=== PATIENT | female | born 1985 | race Caucasian/White ===

== ENCOUNTER 2020-09-19 16:36 | Emergency (ER) | payer MEDICAID ==
[~2020-09-19] VITALS: Ht 160 cm; Wt 63.5 kg
[2020-09-19 16:38] VITALS: BP 109/76
--- NOTE | 2020-09-19 16:46 | NUR ---
PT AMBULATED TO BED 1.
--- NOTE | 2020-09-19 16:50 | NUR ---
NADYA Gracia is evaluating patient at bedside.
[2020-09-19] MEDS ORDERED: KETOROLAC 30 MG/ML VIAL IM ONE (17:00)
--- NOTE | 2020-09-19 17:09 | NUR ---
35 y/o female coming in from home with c/c leg pain. Pt states she has been experiencing left leg pain x 4 months, and it progressively has gotten worse in the past 3 weeks. She states she has had difficulty sleeping due to pain. Pt states pain 10/10 from left buttock region that radiates down to left foot. Pt states associated lightheadness and nausea. Pt sought Teleconsult with MD last week, prescribed with gabapentin and ibuprofen, which provided no relief. Denies trauma or injury to area. Pt took Ibuprofen at 10AM today with no relief to pain. 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 Bed locked in lowest position, side rails x 1, call light in reach. PMH/Meds: Denies NKA
--- NOTE | 2020-09-19 17:27 | NUR ---
X-ray transported pt via wheelchair.
--- NOTE | 2020-09-19 17:38 | NUR ---
Patient returned from X-ray via wheelchair. Placed back onto cardiac sonographer. Bed locked in lowest position, side rails x 1, call light in reach.
[2020-09-19] MEDS ORDERED: METH-1681 PO (17:59)
[2020-09-19] MEDS ORDERED: METH4TAB3 PO (17:59)
[2020-09-19] MEDS ORDERED: LID5T TP (17:59)
[2020-09-19 18:17] VITALS: BP 113/64
--- NOTE | 2020-09-19 18:17 | NUR ---
Patient discharged with v/s stable. Written and verbal after care instructions given and explained. Patient alert, oriented and verbalized understanding of instructions. Ambulatory with steady gait. All questions addressed prior to discharge. ID band removed. Patient advised to follow up with PMD. Rx of Lidocaine, Methocarbamol, methylprednisolone given. Patient educated on indication of medication including possible reaction and side effects. Opportunity to ask questions provided and answered.
== END 2020-09-19 18:17 | disposition home or self-care (01) ==
LOC: MED 16:36
DX: G89.29 Other chronic pain (principal); M54.16 Radiculopathy, lumbar region; M79.605 Pain in left leg; Z79.899 Other long term (current) drug therapy
CPT/HCPCS: 72100; 73502; 81002; 81025; 96372; 99284; J1885

== ENCOUNTER 2022-03-21 18:51 | Emergency (ER) | payer MEDICAID ==
[~2022-03-21] VITALS: Ht 160 cm; Wt 68.0 kg
[~2022-03-21 18:51] MED LIST: LID5T TP; METH-1681 PO; METH4TAB3 PO
[2022-03-21 19:20] VITALS: BP 132/75
--- NOTE | 2022-03-21 19:23 | NUR ---
to lobby a/w bed ambulatory
--- NOTE | 2022-03-21 20:27 | NUR ---
PT TAKEN BED 5
[2022-03-21] MEDS ORDERED: ONDANSETRON 4 MG ODT PO ONE (20:30)
--- NOTE | 2022-03-21 20:48 | NUR ---
PATIETN MEDICATED PER ORDERS. PATIENT ALSO C/O 04/28 SHARP ABD PAIN. MD AWARE
[2022-03-21] MEDS ORDERED: KETOROLAC 60 MG/2 ML VIAL IM ONE (21:00)
--- NOTE | 2022-03-21 21:00 | NUR ---
Note undone in EDM - 03/21/22 at 2102 by BRIDGETT 36/F BIB SELF C/C SHARP ABD PAIN 10/10 S/P EATING A SLICE OF PIZZA X12PM. PER PATIENT SHE IS HAVING N/V/CHILLS. PATIENT DENIES SOB/CP/D/C AT THIS TIME. PATIENT DENIES TAKING ANYTHING FOR PAIN PRIOR TO VISIT. ACTIVE BOWEL SOUNDS X4Q, SOFT AND NONTENDER. PATIENT RR EVEN AND UNLABORED. PATIENT GUARDING ABDOMEN. PATIENT PLACED IN BED AND GOWN. BED LOW AND LOCKED. SIDE RAILS UP FOR SAFERTY. ALL NEEDS MET
--- NOTE | 2022-03-21 21:02 | NUR ---
36/F BIB SELF C/C SHARP ABD PAIN 10/10 S/P EATING A SLICE OF PIZZA X12PM. PER PATIENT SHE IS HAVING N/V/CHILLS. PATIENT DENIES SOB/CP/D/C AT THIS TIME. PATIENT DENIES TAKING ANYTHING FOR PAIN PRIOR TO VISIT. ACTIVE BOWEL SOUNDS X4Q, SOFT AND NONTENDER. PATIENT RR EVEN AND UNLABORED. PATIENT GUARDING ABDOMEN. PATIENT PLACED IN BED AND GOWN. BED LOW AND LOCKED. SIDE RAILS UP FOR SAFERTY. ALL NEEDS MET PMHX, RX DENIES NKA
--- NOTE | 2022-03-21 21:08 | NUR ---
PATIETN MEDICATED PER ORDERS. TOLERATED WELL
[2022-03-21] MEDS ORDERED: IBUP-2213 PO (21:10)
[2022-03-21] MEDS ORDERED: ONDA8TAB87 PO (21:10)
[2022-03-21 21:37] VITALS: BP 130/70
--- NOTE | 2022-03-21 21:37 | NUR ---
Patient discharged with v/s stable. Written and verbal after care instructions given and explained. Patient alert, oriented and verbalized understanding of instructions. Ambulatory with steady gait. All questions addressed prior to discharge. ID band removed. Patient advised to follow up with PMD. Rx of IBUPROFEN, ONDANSETRON given.
--- NOTE | 2022-03-21 22:05 | NUR ---
The patient's care was reviewed and supervised by Patricia Bernard RN, RN.
== END 2022-03-21 21:37 | disposition home or self-care (01) ==
LOC: MED 18:51
DX: R10.13 Epigastric pain (principal); R11.2 Nausea with vomiting, unspecified; Z79.899 Other long term (current) drug therapy; Z98.890 Other specified postprocedural states
CPT/HCPCS: 81025; 96372; 99283; J1885; Q0162